=== PATIENT | male | born 2000 | race Caucasian/White ===

== ENCOUNTER 2023-12-14 16:14 | Emergency (ER) | payer OTHER, SELFPAY ==
[2023-12-14 16:29] VITALS: BP 125/79; PULSE 78; RESP 18; TEMP 36.7; O2SAT 99; BMI 24.9
--- NOTE | 2023-12-14 16:37 | DI.RAD.S_ITS ---
PROCEDURE: XR KNEE LT 3V INDICATIONS: swelling, pain. TECHNIQUE: 3 views of the knee were acquired. COMPARISON: None. FINDINGS: Bones: No fractures or dislocations. No suspicious bony lesions. Soft tissues: No joint effusion. No suspicious soft tissue calcifications. IMPRESSION: No acute bony abnormality or significant effusion. Dictated by: Reed Rosa M.D. on 12/14/2023 at 17:25 Approved by: Reed Rosa M.D. on 12/14/2023 at 17:25
--- NOTE | 2023-12-14 18:48 | ED.LOWEXIN ---
HPI - Extremity Injury (Lower) General Chief Complaint: Extremity Injury, Lower Stated Complaint: LT knee injury, equipment fell on his leg Time Seen by Provider: 12/14/23 17:53 Source: patient Mode of arrival: Ambulatory History of Present Illness HPI Narrative: 23-year-old male presents for evaluation of left knee injury. Patient had a heavy piece of metal equipment fall on his leg at work today. He was referred to the ER to check for ?fracture?. He was able to walk but it does cause him pain to bear full weight on his knee. Review of Systems Review of Systems Narrative: Negative except as noted above Exam Initial Vital Signs Initial Vital Signs: Vital Signs Temperature 98.1 F 12/14/23 16:29 Pulse Rate 78 12/14/23 16:29 Respiratory Rate 18 12/14/23 16:29 Blood Pressure 125/79 12/14/23 16:29 Pulse Oximetry 99 12/14/23 16:29 Oxygen Delivery Method Room Air 12/14/23 16:29 Const: Awake, alert, no acute distress, nontoxic appearing MSK: Full range of motion, generalized tenderness to palpation over medial knee without crepitus or deformity Skin: Warm, Dry, intact, no rashes Neuro: AO x3, CN II-XII grossly intact, moves all extremities Course Orders Ordered: ED Orders 12/14/23 16:37 XR knee LT 3V Stat Vital Signs Vital signs: Vital Signs - 8 hr 12/14/23 16:29 Temperature 98.1 F Pulse Rate 78 Respiratory Rate 18 Blood Pressure 125/79 Pulse Oximetry 99 Oxygen Delivery Method Room Air MDM - Extremity Injury (Lower) Differential Diagnosis Differential diagnosis: Likely ankle sprain and strain, acute internal derangement of knee and fracture of femur MDM Narrative Medical decision making narrative: Well-appearing patient with knee injury after piece of heavy equipment fell on him. He was able to ambulate, there was no deformity. X-rays negative for acute findings. Patient counseled to alternate Tylenol and Motrin as needed for pain and to apply ice for swelling. Patient declines note for work since it is the weekend and he does not need it. Discharge Plan Departure Patient Disposition: Home Clinical Impression: Contusion of lower extremity Qualifiers: Encounter type: initial encounter Laterality: left Qualified Code(s): S80.12XA - Contusion of left lower leg, initial encounter Instructions: DI for Contusion Activity Restrictions/Additional Instructions: YOU MAY TAKE TYLENOL AND OR IBUPROFEN NEEDED FOR PAIN. APPLY ICE NEEDED FOR SWELLING. IF YOU CONTINUE TO EXPERIENCE SIGNIFICANT PAIN IN HER UNABLE TO BEAR FULL WEIGHT ON YOUR KNEE REPEAT X-RAYS CAN BE TAKEN 1 WEEK FROM NOW Referrals: ProviderNed [Primary Care Provider] - Stand Alone Forms: Patient Portal/API
[2023-12-14 18:55] VITALS: BP 132/57; PULSE 65; RESP 14; O2SAT 99
== END 2023-12-14 18:57 | disposition home or self-care (01) ==
PROVIDERS: Emergency Provider Emergency Medicine
DX: S80.12XA Contusion of left lower leg, initial encounter (principal); W22.8XXA Striking against or struck by other objects, initial encounter
CPT/HCPCS: 73562; 99283